=== PATIENT | male | born 1935 | race Caucasian/White ===

== ENCOUNTER → 2023-12-06 10:00 | Outpatient (POV) | payer MEDICARE, SELFPAY ==
[2023-12-06 10:06] VITALS: BP 158/81; PULSE 55; RESP 18; O2SAT 94; BMI 29.5
--- NOTE | 2023-12-06 12:30 | A.OFFVIS_ITS ---
HPI Data of Consult Patient: new to practice Consult date: 12/06/23 Requesting Physician: Maritza Gu APRN Primary Care Provider: Louisa Ram APRN Consult Narrative Reason for consult: Cervical radiculopathy symptoms, right hand numbness tingling History of present illness: Mr. Kwan is a 87 year old male who presents today as a referral from the [place] [facility] office. Today he rates his pain a 10 out of 10. Patient states his issues are all related to his neck with radiating symptoms into his upper extremity with numbness and tingling into his entire first 3 fingers. Patient states this has been going on for years and progressively worsened over time. He does describe this as an aching sensation with numbness and tingling into his extremity. 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 He does state the pain is interfering with his ability to perform activities of daily living such as cooking and cleaning. Patient did have previous neck issues that he went to his doctor and had a steroid injection back 4 to 5 years ago and it did provide significant relief. Patient states he was seen last summer at the [place] office however he ended up having carpal tunnel surgery following EMG testing however had no additional improvement. Harman johnston has tried physical therapy and was released due to not having any improvement. Patient states that the therapist [place] that he could not do anything to improve his symptoms and it was not beneficial to continue. Patient states he has continued to try and do the additional exercises at home however still has not made any change in his sensations. Patient did just have this physical therapy in May 2023. Patient has also tried Tylenol and ibuprofen along with heat and ice and multiple topicals and lidocaine patches with no additional improvement. He is interested in any help we may be able to provide. Patient denies any previous neck surgery or any other surgery other than the carpal tunnel his Yaya has been reviewed and is appropriate. CC: Maritza Gu APRN [facility] Disclaimer: The information contained in this section may have been updated after the patient was seen, as this information can be updated by other users. Medical History (Updated 12/06/23 @ 12:38 by Maritza Gu APRN) DDD (degenerative disc disease), cervical GERD (gastroesophageal reflux disease) HLD (hyperlipidemia) HTN (hypertension) Surgical History (Updated 12/06/23 @ 10:40 by Hermila Billingsley RN) History of bilateral knee replacement Family History (Updated 12/06/23 @ 10:39 by Hermila Billingsley RN) Other Unknown family medical history Social History (Updated 12/06/23 @ 10:41 by Hermila Billingsley RN) Smoking Status: Never smoker alcohol intake: current substance use type: denies use current occupational status: retired Travel in the last 8 weeks: None Review of Systems Review of Systems Review of systems:: pertinent systems reviewed and negative unless documented below Review of systems (narrative): Review of Systems: General: No recent weight changes, no fever, no sleep disturbances Respiratory: No cough, no shortness of air, no recurring pulmonary infections Cardiovascular/peripheral vascular: No chest pain, no palpitations, no edema, no shortness of breath Gastrointestinal: No new onset incontinence, normal bowel movements reported Genitourinary: No new onset incontinence Musculoskeletal: Neck pain with right upper arm extremity pain/weakness Psychiatric: [Normal mood/affect] Neurological: [Denies weakness in extremities], [denies balance issues] Meds Home Medications and Allergies Home Medications Medication Instructions Recorded Confirmed Type amlodipine 10 mg tablet (Norvasc) 10 mg PO DAILY 06/06/20 12/06/23 History atenolol 25 mg tablet 25 mg PO DAILY 06/06/20 12/06/23 History gemfibrozil 600 mg tablet 600 mg PO BID 06/06/20 12/06/23 History hydralazine 25 mg tablet 25 mg PO BID 06/06/20 12/06/23 History lisinopril 40 mg tablet 40 mg PO BID 06/06/20 12/06/23 History pravastatin 40 mg tablet 40 mg PO DAILY 06/06/20 12/06/23 History prednisone 10 mg tablet 10 mg PO BID 06/06/20 12/06/23 History New Prescriptions to Start Prescriptions: Allergies Allergy/AdvReac Type Severity Reaction Status Date / Time No Known Allergies Allergy Verified 06/06/20 09:24 Objective Vital signs: Pulse Resp BP Pulse Ox O2 Del Method 55 L 18 158/81 H 94 L Room Air 12/06/23 10:06 12/06/23 10:06 12/06/23 10:06 12/06/23 10:06 02/19/24 10:06 Narrative: Physical Exam: General: Alert and oriented x3, no acute distress, pleasant and cooperative Lungs: Respirations even and unlabored, symmetrical chest expansion Eyes: PERRL Musculoskeletal: Flexion and extension of cervical [spine] somewhat guarded secondary to pain, [antalgic gait noted] positive Spurling's test Neurological: Speech clear, no gross sensory deficit Additional findings Additional findings: [facility] 04/19/2023 MRI cervical spine without contrast Findings: The marrow signal is age-appropriate. There is moderate endplate reactive changes at C3-4. There is straightening of the cervical lordosis with minor retrolisthesis of C3 on C4. The vertebral body heights are within normal limits. Visualized spinal cord is normal in signal and caliber. Degenerative disc disease manifested by loss of disc space signal is present throughout the visualized spine. There is moderate loss of disc space height at C3-4, C5-6, C6-7, and T2-3. Mild loss of disc space height at C2-3 and C4-C5. C2-3: Bilateral facet arthropathy without significant stenosis or foraminal narrowing. C3-4: Disc bulge, posterior ligamentous hypertrophy and bilateral facet arthropathy. Findings result in moderate bilateral foraminal narrowing and narrowing of the thecal sac to 7.5 mm. C4-5: Disc bulge, posterior ligamentum hypertrophy and bilateral osteoarthritic change. Findings result in severe right and moderate left foraminal narrowing. Thecal sac at this level measures 7 mm. C5-6: Mild disc bulge and prominent bilateral osteoarthritic change resulting in severe bilateral foraminal narrowing thecal sac at this level measures 8 mm. C6-7: Disc bulge and bilateral osteoarthritic change resulting in severe left foraminal narrowing and mild right foraminal narrowing. Thecal sac at this level measures 8 mm. C7-T1: Moderate bilateral facet arthropathy without significant stenosis or foraminal narrowing. T2-3 there is disc bulge narrowing in the thecal sac to a centimeter without foraminal point Assessment and Plan *Assessment and plan (1) Cervical radiculopathy: Status: Acute Category: Medical Code(s): M54.12 - Radiculopathy, cervical region (2) Numbness of right hand: Status: Acute Category: Medical Code(s): R20.0 - Anesthesia of skin (3) Chronic pain syndrome: Status: Acute Category: Medical Code(s): G89.4 - Chronic pain syndrome Plan Patient is experiencing worsening pain in his neck with radiating symptoms to his upper extremity along the right side. Patient did have limited range of motion of the cervical spine along with a positive Spurling's test. I have discussed with the patient that he may benefit from a cervical epidural steroid injection. Risk and benefits were discussed with the patient and he would like to proceed forward with this plan of care. Patient has tried and failed conservative treatment such as oral medications, heat and ice, topicals, recent physical therapy and at home stretching exercise for longer than 6 weeks. I will order the patient a compounded cream. Patient will be scheduled for a MIS C6-C7 under fluoroscopy. Patient is not on any blood thinners. Patient has been instructed to contact the clinic with any concerns before the next appointment. Dr. Burgos has reviewed this note and agrees with this plan of care. This note was dictated using voice recognition software and make contain errors or omissions.
== END ==
PROVIDERS: PCP Nurse Practitioner Family; Visit Provider Nurse Practitioner Family
DX: M54.12 Radiculopathy, cervical region (principal); R20.0 Anesthesia of skin; G89.4 Chronic pain syndrome
CPT/HCPCS: 99202; G0463